=== PATIENT | male | born 1935 | race Caucasian/White ===

== ENCOUNTER 2024-02-02 16:00 | Outpatient (CLI) | payer MEDICARE, OTHER | END 2024-02-02 16:01 | disposition home or self-care (01) | LOC: CSHSLEEP 16:00 | PROVIDERS: ATTEND Family Medicine | DX: R06.3 Periodic breathing (principal); R53.83 Other fatigue; E66.9 Obesity, unspecified; Z68.33 Body mass index [BMI] 33.0-33.9, adult | CPT/HCPCS: 95811 ==